=== PATIENT | male | born 1950 | race Caucasian/White ===

== ENCOUNTER 2019-08-11 08:53 | Day surgery (SDC) | payer MEDICARE, OTHER ==
[2019-08-09 12:00] VITALS: BMI 38.2
--- NOTE | 2019-08-11 08:04 | P.GSHP ---
History of Present Illness H&P Date: 08/11/19 CHIEF COMPLAINT: Colon screen HISTORY OF PRESENT ILLNESS: The patient is a 69-year-old male who presents for colon screen. Lower endoscopy was offered for further evaluation and management. PAST MEDICAL HISTORY: Please see list. PAST SURGICAL HISTORY: Please see list. MEDICATIONS: Please see list. ALLERGIES: Please see list. SOCIAL HISTORY: No illicit drug use FAMILY HISTORY: No reports of Crohn disease or ulcerative colitis. REVIEW OF ORGAN SYSTEMS: CONSTITUTIONAL: No reports of fevers or chills. PHYSICAL EXAM: VITAL SIGNS: Stable GENERAL: Well-developed pleasant in no acute distress. HEENT: No scleral icterus. Extraocular movements grossly intact. Moist buccal mucosa. NECK: Supple without lymphadenopathy. CHEST: Unlabored respirations. Equal bilateral excursions. CARDIOVASCULAR: Regular rate and rhythm. Distal 2+ pulses. ABDOMEN: Soft, nontender, nondistended. MUSCULOSKELETAL: No clubbing, cyanosis, or edema. ASSESSMENT: 1. Colon screen. PLAN: 1. Recommend proceeding with a lower endoscopy Past Medical History Past Medical History: Diabetes Mellitus, Skin Disorder Additional Past Medical History / Comment(s): skin condition History of Any Multi-Drug Resistant Organisms: None Reported Additional Past Surgical History / Comment(s): lt elbow with screw,ganglion cyst wrist Past Anesthesia/Blood Transfusion Reactions: No Reported Reaction Smoking Status: Former smoker - Past Family History Mother Family Medical History: No Reported History Medications and Allergies Home Medications Medication Instructions Recorded Confirmed Type Aspirin [Adult Low Dose Aspirin EC] 81 mg PO DAILY 08/09/19 08/09/19 History Insulin Glargine [Lantus] 55 unit SQ HS 08/09/19 08/09/19 History Lisinopril [Prinivil] 5 mg PO HS 08/09/19 08/09/19 History Testosterone (Unkn.Dose) 1 tab PO DAILY 08/09/19 08/09/19 History glyBURIDE [Diabeta] 15 mg PO AC-BID 08/09/19 08/09/19 History metFORMIN HCL [Glucophage] 1,000 mg PO BID 08/09/19 08/09/19 History Allergies Allergy/AdvReac Type Severity Reaction Status Date / Time No Known Allergies Allergy Verified 08/09/19 11:47
[~2019-08-11 08:53] MED LIST: LACTATED RINGERS 1,000 ML IV SCH
[2019-08-11 09:16] VITALS: TEMP 98.5
[2019-08-11] MEDS ORDERED: LIDOCAINE 1% (10MG/ML) FOR IV START INTRADERMA ONE (09:28)
[2019-08-11] MEDS ORDERED: fentaNYL (PF) 50 MCG/ML 2 ML AMP ONE (09:39)
[2019-08-11] MEDS ORDERED: KETAMINE 10 MG/ML 20 ML VIAL ONE (09:39)
[2019-08-11] MEDS ORDERED: PROPOFOL 10 MG/ML 20 ML VIAL IV ONE (09:39)
[2019-08-11] MEDS ORDERED: LIDOCAINE 1% INJ 10MG/ML (20 ML MDV) ONE (09:39)
[2019-08-11] MEDS ORDERED: MIDAZOLAM 2 MG/2 ML VIAL ONE (09:39)
[2019-08-11 09:50] LABS: Glucose,Whole Blood 162 mg/dL (75-99)
--- NOTE | 2019-08-11 10:21 | P.PCN ---
Date of Procedure: 08/11/19 Description of Procedure: PREOPERATIVE DIAGNOSIS: Personal history of colon polyps, high-risk POSTOPERATIVE DIAGNOSIS: Personal history of colon polyps, high-risk Tubular adenoma ascending colon Tubular adenoma ascending Tubular adenoma cecum Internal and external hemorrhoids, grade 3 OPERATION: Colonoscopy to the ileocecal valve and appendiceal orifice. Colonoscopy with multiple hot snare polypectomies Colonoscopy with cold forceps biopsies SURGEON: Trista Solorzano MD. ANESTHESIA: MAC. INDICATIONS: The patient is an 69-year-old male who presents with personal history of colon polyps. Last colonoscopy 1 year ago with removal of 20 mm colon polyp at cecum. Benefits and risks were described and informed consent was obtained. DESCRIPTION OF PROCEDURE: The patient had undergone Suprep. He had been brought into the operating room and laid in the left lateral decubitus position. After adequate intravenous sedation, the rectum was examined with 2% lidocaine jelly. The prostate fossa was unremarkable. External hemorrhoids were encountered. The rectal tone was within normal limits. No lesions were palpated in the rectal vault. An Olympus colonoscope was advanced until the ileocecal valve and appendiceal orifice were clearly viewed. The prep was fair. No large sigmoid diverticulosis was encountered. Multiple colonic polyps were found and snare polypectomy. No evidence of focal colitis was found. Retroflexion of the scope demonstrated grade 3 internal hemorrhoids without active bleeding or inflammation. The colon was desufflated. The patient had tolerated the procedure well. Withdrawal time was over 6 minutes. FINDINGS: Aronchick preparation quality scale 2 (1-5) Internal hemorrhoids, grade 3 External hemorrhoids, grade 3 No arteriovenous malformations. No large sigmoid diverticulosis Removal of 4 polyps: - Snare polypectomy and appendiceal orifice/cecum, 5 mm tubulovillous adenoma polyp. - Cold forceps biopsy ascending colon 2, 3 and 4 mm polyp. - Cold forceps biopsy at 50 cm from the anal verge, 5 mm polyp, descending colon No focal colitis. RECOMMENDATIONS: Given severity of tubular adenomas, recommend repeat colonoscopy 3 years, 2022 Plan - Discharge Summary Discharge Rx Participant: No New Discharge Prescriptions: Continue glyBURIDE [Diabeta] 15 mg PO AC-BID Insulin Glargine [Lantus] 55 unit SQ HS Aspirin [Adult Low Dose Aspirin EC] 81 mg PO DAILY metFORMIN HCL [Glucophage] 1,000 mg PO BID Testosterone (Unkn.Dose) 1 tab PO DAILY Lisinopril [Prinivil] 5 mg PO HS Discharge Medication List Aspirin [Adult Low Dose Aspirin EC] 81 mg PO DAILY 08/09/19 [History] Insulin Glargine [Lantus] 55 unit SQ HS 08/09/19 [History] Lisinopril [Prinivil] 5 mg PO HS 08/09/19 [History] Testosterone (Unkn.Dose) 1 tab PO DAILY 08/09/19 [History] glyBURIDE [Diabeta] 15 mg PO AC-BID 08/09/19 [History] metFORMIN HCL [Glucophage] 1,000 mg PO BID 08/09/19 [History] Follow up Appointment(s)/Referral(s): Trista Solorzano MD [STAFF PHYSICIAN] - As Needed Patient Instructions/Handouts: Colorectal Polyps (DC), Hemorrhoids (DC) Activity/Diet/Wound Care/Special Instructions: Repeat colonoscopy 3 years, 2022 Discharge Disposition: HOME SELF-CARE
[2019-08-11 10:38] VITALS: BP 124/72; PULSE 72; RESP 18
== END 2019-08-11 10:49 | disposition home or self-care (01) ==
LOC: ORWHC2ENDO 08:53
PROVIDERS: ATTEND Surgery Plastic and Reconstructive Surgery
DX: Z12.11 Encounter for screening for malignant neoplasm of colon (principal); D12.2 Benign neoplasm of ascending colon; K64.2 Third degree hemorrhoids; K63.5 Polyp of colon; E11.9 Type 2 diabetes mellitus without complications; I10 Essential (primary) hypertension; L98.9 Disorder of the skin and subcutaneous tissue, unspecified; Z98.890 Other specified postprocedural states; Z87.891 Personal history of nicotine dependence; Z79.82 Long term (current) use of aspirin; Z79.890 Hormone replacement therapy; Z79.4 Long term (current) use of insulin; Z79.899 Other long term (current) drug therapy
CPT/HCPCS: 88305; 45380; 45385; J2250; J2001; J3010; J2704